=== PATIENT | male | born 1985 | race Caucasian/White ===

== ENCOUNTER 2019-02-02 09:23 | Emergency (ER) | payer OTHER ==
[~2019-02-02] VITALS: Ht 157.5 cm; Wt 78.4 kg
[~2019-02-02 09:23] MED LIST: CIPR7.5D LEFT EAR; FAMO-96 PO; HC30CR25 TOP; LORA-186 PO
[2019-02-02 09:27] VITALS: Ht 157.5 cm; Wt 78.4 kg
[2019-02-02] MEDS ORDERED: DIPHENHYDRAMINE 50 MG INJ IV STA (10:03)
[2019-02-02] MEDS ORDERED: predniSONE 20 MG TAB PO STA (10:03)
[2019-02-02] MEDS ORDERED: FAMOTIDINE 20 MG TAB PO STA (10:03)
--- NOTE | 2019-02-02 10:18 | ERD ---
ER Documentation Chief Complaint Chief Complaint generalize body itchy rash since last night HPI This is a 34-year-old male patient who presents emergency room with complaint of urticarial type rash since this morning. Patient states he ate some unusual food yesterday which may have contributed to his reaction. States he has had this 1 time before about 6 years ago but was not sure of what he was allergic to. No shortness of breath, no wheezing, no drooling or airway compromise, no fevers, no recent illness, no chronic medical conditions. Patient denies any change in medications, soaps lotions or his environment. It is alert and appropriate at time of evaluation. ROS All systems reviewed and are negative except as per history of present illness. Medications Home Meds Active Scripts Hydrocortisone* Topical (Hydrocortisone* Topical) 2.5%-28.3 Gm Cream..g., 1 APPLIC TOP DAILY for urticaria for 7 Days, #11 GM Prov:KRYSTAL RICHTER NP 02/02/19 Famotidine* (Pepcid*) 20 Mg Tablet, 20 MG PO DAILY for urticria for 4 Days, #4 TAB Prov:KRYSTAL RICHTER NP 02/02/19 Loratadine* (Claritin*) 10 Mg Tablet, 10 MG PO DAILY for urticaria for 7 Days, #7 TAB Prov:KRYSTAL RICHTER NP 02/02/19 Ciprofloxacin Hcl/Dexameth (Ciprodex Otic Suspension) 7.5 Ml Drops.susp, 4 DROP LEFT EAR BID for 7 Days, EA Prov:THALIA ALMARAZ MD 04/24/17 Allergies Allergies: Coded Allergies: No Known Allergy (Verified Allergy, 04/13/11) PMhx/Soc Medical and Surgical Hx: pt denies Medical Hx, pt denies Surgical Hx History of Surgery: No Anesthesia Reaction: No Hx Neurological Disorder: No Hx Respiratory Disorders: No Hx Cardiac Disorders: No Hx Psychiatric Problems: No Hx Miscellaneous Medical Probl: No Hx Alcohol Use: No Hx Substance Use: No (denies) Hx Tobacco Use: No Smoking Status: Unknown if ever smoked FmHx Family History: No diabetes, No coronary disease, No other Physical Exam Vitals Vital Signs Date Temp Pulse Resp B/P (MAP) Pulse Ox O2 O2 Flow FiO2 Time Delivery Rate 02/02/19 97.4 59 18 139/79 97 09:27 (99) Physical Exam Const: No acute distress Head: Atraumatic Eyes: Normal Conjunctiva, PERRL ENT: Normal External Ears, Nose and Mouth. Pharynx pink, moist, no lesions, no exudate, uvula midline no drooling Neck: Full range of motion. No meningismus. No lymphadenopathy Resp: Clear to auscultation bilaterally, equal chest rise, no wheezing, no rhonchi, no cough Cardio: Regular rate and rhythm, no murmurs Abd: Soft, non tender, non distended. Normal bowel sounds, no organomegaly Skin: No petechiae or rashes, pink urticarial type rash under her armpits, in flexure of hips, in flexure of elbows sparing lower legs, distal arms, trunk and back Back: No midline or flank tenderness Ext: No cyanosis, or edema Neur: Awake and alert, CNII-XII intact, clear speech, steady gait Psych: Normal Mood and Affect Results 24 hrs Current Medications Medications Dose Sig/Rich Start Time Status Last (Trade) Ordered Route PRN Stop Time Admin Dose Reason Admin 25 mg ONCE STAT 02/02/19 DC 02/02/19 Diphenhydrami IV 10:03 10:07 ne HCl 02/02/19 10:04 (Benadryl) Famotidine 20 mg ONCE STAT 02/02/19 DC 02/02/19 (Pepcid) PO 10:03 10:07 02/02/19 10:04 Prednisone 60 mg ONCE STAT 02/02/19 DC 02/02/19 (Prednisone) PO 10:03 10:07 02/02/19 10:04 Procedures/MDM PROCEDURES/MDM -Medications: Benadryl, Pepcid, prednisone Patient tolerated medication well with no adverse reactions. Patient reported improvement in itching and rash symptoms. MDM: This is a 34-year-old male patient who presents emergency room with new onset of urticarial rash upon awakening this morning. Patient states he has had this 1 time before and is not aware of what he is allergic to. Rash does appear to be allergic in nature and may have component of heat rash or exposure to something in the environment as a urticarial rash is under her armpits and along sides of trunk where his arms would rub, also in elbow flexors and hip flexors. This rash does not appear to be infectious in nature, no erythema, low suspicion for any necrotizing or contagious component, sepsis, or metabolic disease. Patient has been instructed on use of antihistamines and topical steroid as well as frequent showering, moisturizing skin, and looking at his environment, soaps, lotions, detergents to what may be causing this reaction. Patient is also been instructed to follow-up with his primary care doctor to request blood tests for allergies. Patient has been instructed on red flag signs and symptoms of sending of condition and when to return to the emergency room emergent medical care. DISPOSITION and PLAN: RX: Pepcid, Claritin, hydrocortisone The patient has been discharge home to follow-up with community physician. Departure Diagnosis: Primary Impression: Urticaria Condition: Stable Patient Instructions: [facility] Referrals: [facility] YOU HAVE RECEIVED A MEDICAL SCREENING EXAM AND THE RESULTS INDICATE THAT YOU DO NOT HAVE A CONDITION THAT REQUIRES URGENT TREATMENT IN THE EMERGENCY DEPARTMENT. FURTHER EVALUATION AND TREATMENT OF YOUR CONDITION CAN WAIT UNTIL YOU ARE SEEN IN YOUR DOCTORS OFFICE WITHIN THE NEXT 1-2 DAYS. IT IS YOUR RESPONSIBILITY TO MAKE AN APPOINTMENT FOR FOLOW-UP CARE. IF YOU HAVE A PRIMARY DOCTOR --you should call your primary doctor and schedule an appointment IF YOU DO NOT HAVE A PRIMARY DOCTOR YOU CAN CALL OUR PHYSICIAN REFERRAL HOTLINE AT IF YOU CAN NOT AFFORD TO SEE A PHYSICIAN YOU CAN CHOSE FROM THE FOLLOWING [facility] [address] [facility] [facility] [facility] [address] [facility] [facility] [address] [facility] [facility] [address] [facility] [facility] [address] [facility]. [facility]. [address] Additional Instructions: Thank you very much for allowing us to participate in your care. Your health and safety is our top priority at [facility]. Call your primary care doctor TOMORROW for an appointment during the next 2-4 days and bring all the information and medications prescribed. Have prescriptions filled and follow precisely the directions on the label. If the symptoms get worse and your provider is unavailable, return to the [facility] Department immediately. SHOWER DAILY, USE EMOLLIENT MOISTURIZING CREAM SUCH LUBRIDERM EXTRA STRENGTH APPLY HYDROCORTISONE DAILY AFTER SHOWERING AVOID IRRITANTS SUCH ANIMAL DANDER AND DUST AND HEAT AND SWEAT TAKE ALL PRESCRIPTIONS PRESCRIBED FOLLOW-UP WITH YOUR PRIMARY CARE DOCTOR FOR ALLERGY TESTING RETURN TO THE EMERGENCY ROOM IMMEDIATELY FOR ANY CHANGING OR WORSENING OF YOUR SYMPTOMS KRYSTAL RICHTER NP Feb 02, 2019 10:18
[2019-02-02 10:26] VITALS: BP 128/75; PULSE 77; RESP 18
== END 2019-02-02 10:26 | disposition home or self-care (01) ==
LOC: FTE 09:23
DX: L50.9 Urticaria, unspecified (principal)
CPT/HCPCS: 96374; J1200; J7512; Z7502; Z7610